=== PATIENT | male | born 1985 | race Caucasian/White ===

== ENCOUNTER 2018-03-07 05:13 | Emergency (ER) | payer OTHER ==
[2018-03-07 05:19] VITALS: RESP 18; TEMP 98.3
[2018-03-07] MEDS ORDERED: ASPIRIN 81 MG PO STA (05:21)
[2018-03-07 05:49] LABS: Basophils % (A) 0 %; Eosinophils # (A) 0.3 k/uL (0-0.7); Eosinophils % (A) 3 %; HCT 46.2 % (39.0-53.0); HGB 15.2 gm/dL (13.0-17.5); Lymphocytes # (A) 2.4 k/uL (1.0-4.8); Lymphocytes % (A) 28 %; MCH 29.3 pg (25.0-35.0); MCHC 32.9 g/dL (31.0-37.0); MCV 89.1 fL (80.0-100.0); Mean Platelet Volume 6.6; Monocytes # (A) 0.4 k/uL (0-1.0); Monocytes % (A) 5 %; Neutrophils # (A) 5.4 k/uL (1.3-7.7); Neutrophils % (A) 62 %; Platelet Count 263 k/uL (150-450); RBC 5.19 m/uL (4.30-5.90); WBC 8.6 k/uL (3.8-10.6)
--- NOTE | 2018-03-07 05:49 | XR ---
EXAMINATION TYPE: XR chest 2V DATE OF EXAM: 03/07/2018 COMPARISON: NONE HISTORY: Chest pain TECHNIQUE: Frontal and lateral views of the chest are obtained. FINDINGS: Heart and mediastinum are normal. Lungs are clear. Diaphragm is normal. Bony thorax is int act. There are chest leads. IMPRESSION: Normal chest
[2018-03-07 05:59] LABS: ALT 18 U/L (21-72); AST 25 U/L (17-59); Albumin 4.4 g/dL (3.5-5.0); Alkaline Phosphatase 87 U/L (38-126); Anion Gap 7 mmol/L; Blood Urea Nitrogen 8 mg/dL (9-20); Calcium 9.8 mg/dL (8.4-10.2); Carbon Dioxide 29 mmol/L (22-30); Chloride 103 mmol/L (98-107); Glucose 102 mg/dL (74-99); Lipase 71 U/L (23-300); Potassium 3.9 mmol/L (3.5-5.1); Sodium 139 mmol/L (137-145); Total Bilirubin 0.7 mg/dL (0.2-1.3); Total Protein 7.5 g/dL (6.3-8.2)
[2018-03-07 06:11] LABS: D-Dimer <0.17 mg/L FEU (<0.60); Partial Thromboplastin Time 26.9 sec (22.0-30.0); Prothrombin Time 9.9 sec (9.0-12.0)
--- NOTE | 2018-03-07 06:20 | ED ---
General Adult HPI - General Source: patient Mode of arrival: ambulatory Limitations: no limitations <Melany Brian - Last Filed: 03/07/18 07:16> <Chidi Mensah - Last Filed: 03/07/18 09:30> - General Chief complaint: Chest Pain Stated complaint: Chest Pain Time Seen by Provider: 03/07/18 05:21 - History of Present Illness Initial comments: Dejuan is a 32-year-old male who presents the emergency department today for evaluation of chest pain. She reports he was in his usual state of health throughout the day yesterday. He reports that he woke this morning with a pressure-like sensation in his left chest. This was not associated with any diaphoresis, lightheadedness, or evidence of breath or palpitations. Patient reports that the symptoms have improved significantly since arrival in the emergency department. He is a known cardiac or pulmonary history. He does report that he has had a runny stuffy nose and ear pressure for the past couple of days. He denies any fevers, chills, nausea, vomiting or evidence of breath or wheezing. (Melany Brian) - Related Data Home Medications Medication Instructions Recorded Confirmed Phenylephrine/Dm/Acetaminop/GG 2 tab PO Q4HR PRN 03/07/18 03/07/18 [Tylenol Cold-Flu Severe Caplet] Allergies Allergy/AdvReac Type Severity Reaction Status Date / Time No Known Allergies Allergy Verified 03/07/18 07:11 Review of Systems ROS Other: All systems not noted in ROS Statement are negative. <Melany Brian - Last Filed: 03/07/18 07:16> ROS Other: All systems not noted in ROS Statement are negative. <Chidi Mensah - Last Filed: 03/07/18 09:30> ROS Statement: Those systems with pertinent positive or pertinent negative responses have been documented in the HPI. Past Medical History Past Medical History: No Reported History History of Any Multi-Drug Resistant Organisms: None Reported Past Surgical History: Ear Surgery Past Psychological History: No Psychological Hx Reported Smoking Status: Current every day smoker Past Alcohol Use History: Occasional Past Drug Use History: Marijuana <Melany Brian - Last Filed: 03/07/18 07:16> General Exam Limitations: no limitations <Melany Brian - Last Filed: 03/07/18 07:16> <Chidi Mensah - Last Filed: 03/07/18 09:30> - General Exam Comments Initial Comments: GENERAL: Patient is well-developed and well-nourished. Patient is nontoxic and well- hydrated and is in no distress. HENT: Normocephalic, Atraumatic. Neck is soft and supple. No significant lymphadenopathy is noted. Oropharynx is clear. Moist mucous membranes. Neck has full range of motion without eliciting any pain. EYES: The sclera were anicteric and conjunctiva were pink and moist. Extraocular movements were intact and pupils were equal round and reactive to light. Eyelids were unremarkable. PULMONARY: Unlabored respirations. Good breath sounds bilaterally. No audible rales rhonchi or wheezing was noted. CARDIOVASCULAR: There is a regular rate and rhythm without any murmurs gallops or rubs. ABDOMEN: Soft and nontender with normal bowel sounds. SKIN: Skin is clear with no lesions or rashes and otherwise unremarkable. NEUROLOGIC: Patient is alert and oriented x3. Cranial nerves II through XII are grossly intact. Motor and sensory are also intact. Normal speech, volume and content. Symmetrical smile. MUSCULOSKELETAL: Normal extremities with adequate strength and full range of motion. No lower extremity swelling or edema. No calf tenderness. LYMPHATICS: No significant lymphadenopathy is noted PSYCHIATRIC: Normal psychiatric evaluation. Limitations: no limitations (Melany Brian) Vital Signs 03/07/18 03/07/18 05:17 06:27 Temperature 98.3 F Pulse Rate 82 68 Respiratory 18 18 Rate Blood Pressure 139/95 116/73 O2 Sat by Pulse 98 98 Oximetry EKG Findings - EKG Comments: EKG Findings:: EKG obtained at 5:25 AM, rate is 82, rhythm is sinus, short OR concerning for WPW, QRS 120, QTC 467, no acute ST elevations or depressions no evidence of acute ischemia or infarction. EKG obtained at 6:33 AM, again sinus rhythm rate is 71, again a short OR concerning for WPW. OR 108, QRS 1:30, QTC 462. No acute ST elevations or depressions no evidence of acute ischemia or infarction. <Melany Brian - Last Filed: 03/07/18 07:16> Medical Decision Making - Lab Data Result diagrams: 03/07/18 05:24 03/07/18 05:24 <Melany Brian - Last Filed: 03/07/18 07:16> - Lab Data Result diagrams: 03/07/18 05:24 03/07/18 05:24 - Radiology Data Radiology results: image reviewed (Chest x-ray shows no acute process) <Chidi Mensah - Last Filed: 03/07/18 09:30> - Medical Decision Making Upon my initial evaluation the patient sitting comfortably in bed tech sting on his phone, when I introduced myself and offered to shake the patient's hand, the patient did not stop exiting and instead reached out his left hand while still paying attention to his cell phone. Initial EKG sinus rhythm with WPW, patient has no history of such Cardiac workup was ordered Labs unremarkable, troponin and d-dimer negative Repeat EKG again confirms WPW Cardiology was consulted to discuss these EKG findings, launch leader at bedside to evaluate the patient, recommends repeat troponin and plan for discharge home Patient care is signed out to Dr. Mensah follow-up on the 3 hour troponin and dispo appropriately (Melany Brian) Patient was previously seen by Dr. La who did recommend repeat troponin and discharge. Patient reevaluated by myself, Dr. Mensah. Patient resting comfortably in bed with no complaints requesting discharge. Patient is updated on results and need for follow-up as directed by Dr. Brar who did take the patient's phone number. (Chidi Mensah) - Lab Data Lab Results 03/07/18 03/07/18 03/07/18 Range/Units 05:24 05:24 05:24 WBC 8.6 (3.8-10.6) k/uL RBC 5.19 (4.30-5.90) m/uL Hgb 15.2 (13.0-17.5) gm/dL Hct 46.2 (39.0-53.0) % MCV 89.1 (80.0-100.0) fL MCH 29.3 (25.0-35.0) pg MCHC 32.9 (31.0-37.0) g/dL RDW 13.0 (11.5-15.5) % Plt Count 263 (150-450) k/uL Neutrophils % 62 % Lymphocytes % 28 % Monocytes % 5 % Eosinophils % 3 % Basophils % 0 % Neutrophils # 5.4 (1.3-7.7) k/uL Lymphocytes # 2.4 (1.0-4.8) k/uL Monocytes # 0.4 (0-1.0) k/uL Eosinophils # 0.3 (0-0.7) k/uL Basophils # 0.0 (0-0.2) k/uL PT 9.9 (9.0-12.0) sec INR 1.0 (<1.2) APTT 26.9 (22.0-30.0) sec D-Dimer <0.17 (<0.60) mg/L FEU Sodium 139 (137-145) mmol/L Potassium 3.9 (3.5-5.1) mmol/L Chloride 103 (98-107) mmol/L Carbon Dioxide 29 (22-30) mmol/L Anion Gap 7 mmol/L BUN 8 L (9-20) mg/dL Creatinine 0.77 (0.66-1.25) mg/dL Est GFR (CKD-EPI)AfAm >90 (>60 ml/min/1.73 sqM) Est GFR (CKD-EPI)NonAf >90 (>60 ml/min/1.73 sqM) Glucose 102 H (74-99) mg/dL Calcium 9.8 (8.4-10.2) mg/dL Magnesium 2.0 (1.6-2.3) mg/dL Total Bilirubin 0.7 (0.2-1.3) mg/dL AST 25 (17-59) U/L ALT 18 L (21-72) U/L Alkaline Phosphatase 87 (38-126) U/L Troponin I (0.000-0.034) ng/mL Total Protein 7.5 (6.3-8.2) g/dL Albumin 4.4 (3.5-5.0) g/dL Lipase 71 (23-300) U/L 03/07/18 03/07/18 Range/Units 05:24 08:10 WBC (3.8-10.6) k/uL RBC (4.30-5.90) m/uL Hgb (13.0-17.5) gm/dL Hct (39.0-53.0) % MCV (80.0-100.0) fL MCH (25.0-35.0) pg MCHC (31.0-37.0) g/dL RDW (11.5-15.5) % Plt Count (150-450) k/uL Neutrophils % % Lymphocytes % % Monocytes % % Eosinophils % % Basophils % % Neutrophils # (1.3-7.7) k/uL Lymphocytes # (1.0-4.8) k/uL Monocytes # (0-1.0) k/uL Eosinophils # (0-0.7) k/uL Basophils # (0-0.2) k/uL PT (9.0-12.0) sec INR (<1.2) APTT (22.0-30.0) sec D-Dimer (<0.60) mg/L FEU Sodium (137-145) mmol/L Potassium (3.5-5.1) mmol/L Chloride (98-107) mmol/L Carbon Dioxide (22-30) mmol/L Anion Gap mmol/L BUN (9-20) mg/dL Creatinine (0.66-1.25) mg/dL Est GFR (CKD-EPI)AfAm (>60 ml/min/1.73 sqM) Est GFR (CKD-EPI)NonAf (>60 ml/min/1.73 sqM) Glucose (74-99) mg/dL Calcium (8.4-10.2) mg/dL Magnesium (1.6-2.3) mg/dL Total Bilirubin (0.2-1.3) mg/dL AST (17-59) U/L ALT (21-72) U/L Alkaline Phosphatase (38-126) U/L Troponin I <0.012 <0.012 (0.000-0.034) ng/mL Total Protein (6.3-8.2) g/dL Albumin (3.5-5.0) g/dL Lipase (23-300) U/L Disposition <Melany Brian - Last Filed: 03/07/18 07:16> Is patient prescribed a controlled substance at d/c from ED?: No Time of Disposition: 09:30 <Chidi Mensah - Last Filed: 03/07/18 09:30> Clinical Impression: WPW (Pegrc-Lkochjcly-Cybnx syndrome), Atypical chest pain Disposition: HOME SELF-CARE Condition: Stable Instructions: Chest Pain (ED), Hbvql-Bhoeoipmh-Lhupf Syndrome (ED) Additional Instructions: Please follow-up with Dr. Blake as directed. Please follow-up with primary care physician in the next couple days for recheck. Return for increased pain, difficulty breathing, increased heart rate, worsening or changing symptoms or other concerns. Referrals: Rain Dsouza MD [Primary Care Provider] - 1-2 days Stan Brar MD [STAFF PHYSICIAN] - 1-2 days
[2018-03-07 06:28] VITALS: PULSE 68
[2018-03-07 07:07] VITALS: BP 116/73
--- NOTE | 2018-03-07 12:09 | P.CRDCN ---
History of Present Illness History of present illness: This is Dr. Brar dictating a consult on this patient The patient was interviewed and examined by me IMPRESSION / ASSESSMENT: Abnormal ECG with delta waves consistent with a left posterior accessory pathway , symptomatic Atypical chest discomfort with normal cardiac enzymes Recurrent palpitations PLAN: Patient may go home if serial cardiac enzymes and ECGs show no changes. Follow- up with Dr. Ford as an outpatient for the management of the WPW syndrome HPI Patient presented with localized chest discomfort of the left pectoral area. He woke up with this pain and came to the ER. Spontaneous resolution of the pain. Twelve-lead ECG showed sinus rhythm with a short NH interval and delta waves with upright morphology in leads V1 through V6 upright in one in aVL and mostly negative in the inferior leads with initial positivity He was complaining of sore throat for the last few days no fever ROS: He complains of recurrent palpitations that can last for 20-25 minutes. He has had at least 3 episodes this year. Describes are regular and rapid tachycardia, not and irregular one No fever chills or rigors, no cough, phlegm or expectoration, no nausea, vomiting or diarrhea, no hematuria, dysuria, no musculoskeletal complaints, no strokes or seizures, no skin lesions. EXAMINATION Afebrile 98.3F blood pressure 139/95 and 116/73 mmHg pulse rate in the 60s normal respirations Breath sounds are clear no rhonchi no crackles no adventitious sounds Normal heart sounds normal S1 normal S2 no murmurs or gallops no rub Abdomen is soft nontender Extremities warm no edema REVIEW OF LABS, ECG ECG shows left-sided accessory pathway likely inferior/posterior location Normal CBC, normal electrolytes, Serial chronic enzymes are normal normal lipase normal kidney function Number chest x-ray Past Medical History Past Medical History: No Reported History History of Any Multi-Drug Resistant Organisms: None Reported Past Surgical History: Ear Surgery Past Psychological History: No Psychological Hx Reported Smoking Status: Current every day smoker Past Alcohol Use History: Occasional Past Drug Use History: Marijuana Medications and Allergies Home Medications Medication Instructions Recorded Confirmed Type Phenylephrine/Dm/Acetaminop/GG 2 tab PO Q4HR PRN 03/07/18 03/07/18 History [Tylenol Cold-Flu Severe Caplet] Allergies Allergy/AdvReac Type Severity Reaction Status Date / Time No Known Allergies Allergy Verified 03/07/18 07:11 Physical Exam Vitals: Vital Signs Temp Pulse Resp BP Pulse Ox 03/07/18 06:27 68 18 116/73 98 03/07/18 05:17 98.3 F 82 18 139/95 98 Intake and Output 03/06/18 03/07/18 03/07/18 22:59 06:59 14:59 Other: Weight 56.699 kg Results 03/07/18 05:24 03/07/18 05:24 Cardiac Enzymes 03/07/18 03/07/18 03/07/18 Range/Units 05:24 05:24 08:10 AST 25 (17-59) U/L Troponin I <0.012 <0.012 (0.000-0.034) ng/mL Coagulation 03/07/18 Range/Units 05:24 PT 9.9 (9.0-12.0) sec APTT 26.9 (22.0-30.0) sec CBC 03/07/18 Range/Units 05:24 WBC 8.6 (3.8-10.6) k/uL RBC 5.19 (4.30-5.90) m/uL Hgb 15.2 (13.0-17.5) gm/dL Hct 46.2 (39.0-53.0) % Plt Count 263 (150-450) k/uL Comprehensive Metabolic Panel 03/07/18 Range/Units 05:24 Sodium 139 (137-145) mmol/L Potassium 3.9 (3.5-5.1) mmol/L Chloride 103 (98-107) mmol/L Carbon Dioxide 29 (22-30) mmol/L BUN 8 L (9-20) mg/dL Creatinine 0.77 (0.66-1.25) mg/dL Glucose 102 H (74-99) mg/dL Calcium 9.8 (8.4-10.2) mg/dL AST 25 (17-59) U/L ALT 18 L (21-72) U/L Alkaline Phosphatase 87 (38-126) U/L Total Protein 7.5 (6.3-8.2) g/dL Albumin 4.4 (3.5-5.0) g/dL Intake and Output 03/06/18 03/07/18 03/07/18 22:59 06:59 14:59 Other: Weight 56.699 kg 03/07/18 05:24 03/07/18 05:24
== END 2018-03-07 09:38 | disposition home or self-care (01) ==
LOC: EC 05:13
DX: I45.6 Pre-excitation syndrome (principal); F17.200 Nicotine dependence, unspecified, uncomplicated
CPT/HCPCS: 36415; 71046; 80053; 83690; 83735; 84484; 85025; 85379; 85610; 85730; 93005; 99285

== ENCOUNTER → 2018-06-16 | Outpatient (CLI) | payer OTHER ==
[2018-06-16 15:16] LABS: HCT 42.1 % (39.0-53.0); HGB 14.1 gm/dL (13.0-17.5); MCH 29.8 pg (25.0-35.0); MCHC 33.4 g/dL (31.0-37.0); MCV 89.2 fL (80.0-100.0); Mean Platelet Volume 6.6; Platelet Count 222 k/uL (150-450); RBC 4.72 m/uL (4.30-5.90); RDW 13.4 % (11.5-15.5); WBC 7.2 k/uL (3.8-10.6)
[2018-06-16 15:26] LABS: Anion Gap 7 mmol/L; Blood Urea Nitrogen 10 mg/dL (9-20); Carbon Dioxide 29 mmol/L (22-30); Chloride 104 mmol/L (98-107); Glucose 100 mg/dL (74-99); Potassium 4.1 mmol/L (3.5-5.1); Sodium 140 mmol/L (137-145)
== END | disposition home or self-care (01) ==
LOC: LABPAT 14:40
PROVIDERS: ATTEND Internal Medicine Clinical Cardiac Electrophysiology
DX: Z01.812 Encounter for preprocedural laboratory examination (principal); R07.2 Precordial pain; R94.31 Abnormal electrocardiogram [ECG] [EKG]; I45.6 Pre-excitation syndrome
CPT/HCPCS: 36415; 80051; 82565; 82947; 84520; 85027

== ENCOUNTER 2018-06-26 06:48 | Day surgery (SDC) | payer OTHER ==
[~2018-06-26 06:48] MED LIST: LIDOCAINE 1% 20 ML VIAL (10MG/ML) FOR IV START INTRADERMA PRN
[2018-06-26] MEDS: SODIUM CHLORIDE 0.9% 1,000 ML IV SCH (07:32)
[2018-06-26] MEDS ORDERED: NEOSTIGMINE 1 MG/ML 10 ML VIAL ONE (08:09)
[2018-06-26] MEDS ORDERED: ISOPROTERENOL 250 MCG/1.25 ML SYR IV ONE (08:09)
[2018-06-26] MEDS ORDERED: GLYCOPYRROLATE 0.2 MG/ML 2 ML VIAL ONE (08:09)
[2018-06-26] MEDS ORDERED: ROCURONIUM BROMIDE 10 MG/ML 10 ML VIAL IV ONE (08:09)
[2018-06-26] MEDS ORDERED: fentaNYL (PF) 50 MCG/ML 2 ML AMP ONE (08:09)
[2018-06-26] MEDS ORDERED: MIDAZOLAM 2 MG/2 ML VIAL ONE (08:09)
[2018-06-26] MEDS ORDERED: PROTAMINE SULFATE 10 MG/ML 5 ML VIAL IV ONE (08:09)
[2018-06-26] MEDS ORDERED: SUCCINYLCHOLINE CHLORIDE 100 MG/5 ML SYR IV ONE (08:09)
[2018-06-26] MEDS ORDERED: PROPOFOL 10 MG/ML 20 ML VIAL IV ONE (08:09)
[2018-06-26] MEDS ORDERED: HEPARIN SODIUM,PORCINE 10,000 UNIT/ML 1 ML VIAL ONE (08:09)
[2018-06-26] MEDS ORDERED: LIDOCAINE 1% INJ 10MG/ML (20 ML MDV) ONE (08:35)
[2018-06-26] MEDS ORDERED: LIDOCAINE 1% INJ 10MG/ML (20 ML MDV) SQ ONE (08:50)
[2018-06-26] MEDS ORDERED: ceFAZolin IN SWFI 2 GM/20 ML SYRINGE IVP STA (09:10)
[2018-06-26] MEDS ORDERED: HEPARIN SOD,PORK IN 0.45% NACL 25,000 UNIT in 0.45% NACL 1 250ML.BAG IV ONE (10:40)
[2018-06-26] MEDS ORDERED: HEPARIN SODIUM (1,000 UNIT/ML) 1,000 UNIT in SODIUM CHLORIDE 0.9% 1,000 ML IRRIGATION ONE (11:21)
[2018-06-26] MEDS ORDERED: LACTATED RINGERS 1,000 ML IV ONE (14:43)
--- NOTE | 2018-06-26 15:04 | P.PCN ---
Preoperative Diagnosis: Patient underwent mapping and radiofrequency ablation of the left posterior accessory pathway, bidirectional. This was a deep pathway likely brought Differential pacing techniques were used Mapping was performed with atrial pacing from the high right atrium with 3-D mapping as well as conventional mapping Mapping was performed with distal CS pacing with 3-D mapping as well as conventional mapping Double transseptal access was obtained to place a diagnostic catheter in the left atrium and left ventricle during differential pacing as well as the RF ablation catheter Mapping was performed with lateral left atrial pacing with 3-D and conventional mapping Mapping was performed with LV base pacing ALL mapping techniques localized the pathway to the left posterior mitral annulus very close to each other Bipolar signals at least 16 ms earlier then the onset of the deltopectoral A. fib with corresponding sharp deep unipolar signals were noted Continuous electrograms with early ventricular activation as compared to the onset of the delta waves were noted with excellent unipolar signals correspondingly Signals consistent with pathway Potential was noted both of the atrial and ventricular ends RF ablation with a contact force between 5-40 g Power of 30-35 W Transseptal approach was used to gain access into the left atrium for ablation at both atrial as well as ventricular ends Transseptal access was also used to gain access across the mitral annulus and go under the valve and ablated the ventricular end Once the atrial and was ablated there is a clear change in the morphology of lead V1 from a broad wide fractionated upright signal to a shop narrow signal but subtle evidence of a delta wave was still noticeable in the rest of the precordial leads and in lead 1 This was a deep pathway and likely brought and despite accurate maps that coincided with each other using different pacing techniques, partial success was obtained in ablating this pathway There is a clear change in the QRS morphology in sinus rhythm as well as with atrial pacing post ablation This is a long procedure that lasted over 5-1/2 hours
[2018-06-26] MEDS ORDERED: PROMETHAZINE INJ 25 MG/ML 1 ML VIAL IVPB ONE (15:30)
[2018-06-26] MEDS ORDERED: HYDROcodone/APAP 5-325MG 1 EACH TAB PO PRN (15:49)
--- NOTE | 2018-06-26 16:23 | PCN ---
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 Patient was brought to the EP lab in a fasting state. Written informed consent was obtained prior to procedure. The right and left groins were prepped and draped as per protocol. Two venous sheaths placed in the right femoral vein, 2 venous sheaths in the left femoral vein. Via these, diagnostic catheters placed in the high right atrium, HIS bundle area, right ventricle and coronary sinus. Sinus cycle length 802 milliseconds, WV interval 88 milliseconds, QRS 131 milliseconds, QT 375 milliseconds, AH interval 15 milliseconds, HV interval 18 milliseconds. In conscious sedation, the patient started moving around a lot and getting off the table and therefore the rest of the procedure was performed under general anesthesia. The 12-lead ECG was consistent with an accessory pathway along the left posterior aspect (posterior mitral anulus). The initial vector of the Delta waves was positive in leads 1 and aVL, somewhat to negative in the inferior leads and upright in V1. Sinus node recovery times were at 500 and 400 milliseconds were 667 and 652 milliseconds. AV node Wenckebach block 220 milliseconds with simultaneous block in excessive pathway and the AV node. VA Wenckebach block 370 milliseconds. Earliest retrograde atrial activity in CS5, 6 which was in the posterior aspect of the mitral anulus. Para Hisian pacing was performed, but extra jazmyn response was obtained. Atrial extra stimulation was performed on and off Isuprel, and ventricular extra stimulation was also performed. No orthodromic reentry. No antidromic reentry. However, the conducting properties of the pathway were rapid with AV block at 220 milliseconds and accessory pathway block at 220 milliseconds even without Isuprel. With Isuprel, conduction remained intact at less than 200 milliseconds pacing cycle length in the atrium. Therefore, left and right transseptal catheterization was performed. Intracardiac echo was performed. Interatrial septum was identified. Mitral anulus was identified. RA pressure 10 x 5 x 7 mmHg and LA pressure 17 x 2 x 9 mmHg. Mapping and ablation catheter (YOLANDA birch) was placed and the pathway was mapped. The ventricular end was mapped during high right atrial pacing and then subsequently the ventricular end was mapped during distal CS pacing beyond the pathway. Both of these sides coincided fairly well with each other in terms of the location of the pathway by conventional techniques, excellent electrograms with early bipolar signals preceding the onset of the delta wave with corresponding deep negative unipolar signals are noted. RF ablation was performed with contact force of around 7-12 g, but no response was noted with short lesions of 10-12 seconds with a power of 30 velasquez. Therefore double transseptal catheterization was performed. The diagnostic catheter was placed in the left atrium. Then secured in the left ventricle. Pacing in the left atrium, the ventricular end of the pathway was mapped. Once again, this corresponded very well with his previous maps. V pacing was performed from the left ventricular base and the atrial end of the pathway was mapped and this also corresponded very well with the ventricular end that had to be mapped with 3 different techniques. The left atrium was paced in the lateral left atrium. RF ablation was applied along the atrial insertion. There was a change at this time contact force between 10 to 14 was used and then was obtained power of up to 35 velasquez. This resulted in a change in the QRS, especially in lead V1 and narrowing of the QRS in general with less prominent delta waves, but lead V1 had a clear change in its configuration and became sharp without any evident delta waves. There was a subtle evidence for delta waves in the other leads. WV interval increased slightly. We spent almost 5-1/2 hours mapping this pathway in detail with differential pacing from the right atrium, coronary sinus, distal coronary sinus, left atrium and from the left ventricle. Early bipolar signals of at least 16 milliseconds from the onset of the delta waves were noted. There were corresponding sharp unipolar signals along with these bipolar signals. Continuous electrograms were also noted with early ventricular signals. On several occasions, pathway potentials were noted especially on the ventricular aspect of the insertion (putative can potential). These areas were all targeted with ablation with good contact force and good power, but subtle evidence of delta waves were still noted in the lateral in lead 1, aVL as well as in the lateral precordial leads. In the final this appeared to be a deep and fairly broad accessory and reasonably broad accessory pathway with near complete elimination with RF ablation. Patient tolerated the procedure well without any acute complications. Bleeding was noted from the right groin where a double puncture was performed in the right groin for double transseptal access, but this settled down after protamine was given to reverse the heparin and removal of the sheath. Femstop was used. PLAN: Bedrest for 6-8 hours and I will also treat her with aspirin 81 mg p.o. daily for 1 month and in addition we will treat her with flecainide 50 mg twice daily and Verapamil 40 mg twice daily for the next 6 weeks. MMODL / IJN: [id number] /
[2018-06-26] MEDS: LACTATED RINGERS 1,000 ML IV SCH (16:24)
[2018-06-26] MEDS ORDERED: ACETAMINOPHEN IV (For NPO) 1,000 MG in EMPTY BAG 1 BAG IVPB ONE (17:00)
[2018-06-26 17:36] VITALS: BMI 18.4
[2018-06-26] MEDS ORDERED: ONDANSETRON 4 MG/2 ML VIAL IVP PRN (19:02)
[2018-06-26] MEDS: ASPIRIN 81 MG PO SCH (19:02)
[2018-06-26] MEDS: ACETAMINOPHEN TAB 325 MG TAB PO PRN (20:57)
[2018-06-26] MEDS: FLECAINIDE 50 MG TAB PO SCH (20:57)
[2018-06-26] MEDS: VERAPAMIL 40 MG TAB PO SCH (20:58)
[2018-06-27] MEDS: ACETAMINOPHEN TAB 325 MG TAB PO PRN (03:44)
[2018-06-27 05:09] LABS: HCT 31.5 % (39.0-53.0); MCH 30.8 pg (25.0-35.0); MCHC 34.6 g/dL (31.0-37.0); MCV 88.8 fL (80.0-100.0); Mean Platelet Volume 6.9; Platelet Count 172 k/uL (150-450); RBC 3.55 m/uL (4.30-5.90); RDW 13.4 % (11.5-15.5); WBC 12.6 k/uL (3.8-10.6)
[2018-06-27 05:43] LABS: HGB 10.9 gm/dL (13.0-17.5)
[2018-06-27 07:23] VITALS: BP 151/78; PULSE 73; RESP 18; TEMP 97.5
[2018-06-27] MEDS: SODIUM CHLORIDE 0.9% 1,000 ML IV SCH (08:39)
[2018-06-27] MEDS: LACTATED RINGERS 1,000 ML IV SCH (08:40)
[2018-06-27] MEDS: VERAPAMIL 40 MG TAB PO SCH (08:45)
[2018-06-27] MEDS: ASPIRIN 81 MG PO SCH (08:47)
[2018-06-27] MEDS: FLECAINIDE 50 MG TAB PO SCH (08:47)
--- NOTE | 2018-06-27 10:30 | P.DS ---
Providers Attending physician: Stan Brar Primary care physician: José Luis Krzysztof [facility] Course: Patient is doing well. He is ambulating around in the hallways. No dizziness lightheadedness palpitations no chest pain. Right groin soreness but there is no hematoma no swelling no bruising Temperature 97.5F pulse rate in the 70s and 80s and 90s sinus rhythm Blood pressure 130/72 mmHg breathing is normal Breath sounds are clear Heart sounds are normal Abdomen soft Next images are warm No hematoma His groin sutures removed Twelve-lead ECG was reviewed and shows a non-sinus supraventricular rhythm with a QRS morphology that is suggestive no delta waves but it is different from his baseline 12-lead ECG. The most different is the morphology of the QRS in lead V1 Impression left posterior accessory pathway which was deep and broad, especially its ventricular insertion. Definitely a partially successful ablation was performed with the change in the QRS morphology once the atrial insertion was mapped and ablated during LV base pacing Plan Aspirin for one month Flecainide 50 mrem twice daily for 6 weeks along with verapamil for 6 weeks Follow-up with Dr. Hand in 1 week for a groin check I would like to see him in about 3 months and review his twelve-lead ECG at that point I may consider a repeat diagnostic EP study to confirm any residual accessory pathway conduction and assess its conduction properties His hemoglobin is lower than at baseline and is around 10 g/dL and encouraged him to eat a lot of greens and nondistended foods and this should normalize in the next 3 months. Patient Condition at Discharge: Stable Plan - Discharge Summary Discharge Rx Participant: Yes New Discharge Prescriptions: New Flecainide [Tambocor] 50 mg PO Q12HR #180 tablet Verapamil [Isoptin] 40 mg PO BID #180 tablet Aspirin EC [Ecotrin Low Dose] 81 mg PO DAILY #40 tablet. No Action diphenhydrAMINE [Benadryl] 25 mg PO DAILY PRN PRN Reason: sinus congestion Discharge Medication List diphenhydrAMINE [Benadryl] 25 mg PO DAILY PRN 06/22/18 [History] Aspirin EC [Ecotrin Low Dose] 81 mg PO DAILY #40 tablet. 06/26/18 [Rx] Flecainide [Tambocor] 50 mg PO Q12HR #180 tablet 06/26/18 [Rx] Verapamil [Isoptin] 40 mg PO BID #180 tablet 06/26/18 [Rx] Follow up Appointment(s)/Referral(s): Kuldip Joseph MD [STAFF PHYSICIAN] - 1 Week Activity/Diet/Wound Care/Special Instructions: Post EP study - Ablation instructions 1. Keep access sites dry for 2 days. 2. No heavy lifting or straining for 2 days. 3. Avoid bending the hips repeatedly for 2 days. 4. You may go up and down stairs slowly Call if the following is noted 1. Bleeding, increasing swelling or pain at the access sites. 2. Increasing chest discomfort, especially upon taking a deep breath. 3. Increasing shortness of breath, at rest or with exertion. 4. Undue cough / phlegm 5. Difficulty or pain while swallowing. 6. Pain or change in color in the extremities. 7. Fever, chills, rigors. 8. Increasing headache or neurologic symptoms. 9. Dizziness, fainting, palpitations Aspirin 81 mg enteric-coated for one month, then stop Flecainide 50 g twice daily as well as verapamil 40 g twice daily Discharge Disposition: HOME SELF-CARE
== END 2018-06-27 11:50 | disposition home or self-care (01) ==
LOC: CATHEP 06:48 → 1SOBS 14:30 → CATHEP 06-27 11:50
PROVIDERS: ATTEND Internal Medicine Clinical Cardiac Electrophysiology
DX: I45.6 Pre-excitation syndrome (principal); I47.1 Supraventricular tachycardia; F17.200 Nicotine dependence, unspecified, uncomplicated
CPT/HCPCS: 93462; 93623; 93662; 93613; 93653; 85347; 85027; C1769 ×4; C1894; C1730; C1759; C1893; C1732; J2250; J2720; J1644 ×3; J2550; J2710; J2001; J3010; J0131; J0330; J2704; J0690

== ENCOUNTER 2018-10-05 17:23 | Emergency (ER) | payer OTHER ==
[2018-10-05 17:28] VITALS: BP 136/89; PULSE 102; RESP 20; TEMP 98.2
--- NOTE | 2018-10-05 18:02 | XR ---
EXAMINATION TYPE: XR hand complete LT DATE OF EXAM: 10/05/2018 COMPARISON: NONE HISTORY: Pain TECHNIQUE: 3 views FINDINGS: There is transverse fracture through the neck of the fifth metacarpal head. There is mild p osterior angulation at the fracture site. There is no dislocation. Joint spaces are normal. IMPRESSION: Acute boxer's fracture distal fifth metacarpal.
--- NOTE | 2018-10-05 18:03 | XR ---
EXAMINATION TYPE: XR wrist complete LT DATE OF EXAM: 10/05/2018 COMPARISON: NONE HISTORY: Hand pain TECHNIQUE: 4 views FINDINGS: Carpal bones are intact. I see no fracture nor dislocation. Joint spaces are normal. IMPRESSION: Negative left wrist exam.
--- NOTE | 2018-10-05 18:52 | ED ---
General Adult HPI - General Chief complaint: Extremity Injury, Upper Stated complaint: Finger injury Time Seen by Provider: 10/05/18 17:35 Source: patient, RN notes reviewed, old records reviewed Mode of arrival: ambulatory Limitations: no limitations - History of Present Illness Initial comments: 32-year-old male patient comes to the left hand injury. Patient reports that he posterior wall in anger earlier today. Patient denies pain on his fifth metacarpal. Patient denies any other injury. Patient denies any pain to other areas of hand, pain in the wrist. Patient denies any other complaints. Systemic: Pt denies fatigue, myalgia, fever/chills, rash. Pt denies weakness, night sweats, weight loss. Neuro: Pt denies headache, visual disturbances, syncope or pre-syncope. HEENT: Pt denies ocular discharge or irritation, otalgia, rhinorrhea, pharyngitis or notable lymphadenopathy. Cardiopulmonary: Pt denies chest pain, SOB, heart palpitations, dyspnea on exertion. Abdominal/GI: Pt denies abdominal pain, n/v/d. : Pt denies dysuria, burning w/ urination, frequency/urgency. Denies new onset urinary or bowel incontinence. MSK: Pt denies myalgia, loss of strength or function in extremities. Neuro: Pt denies new onset weakness, paresthesias. - Related Data Home Medications Medication Instructions Recorded Confirmed diphenhydrAMINE [Benadryl] 25 mg PO DAILY PRN 06/22/18 06/26/18 Previous Rx's Medication Instructions Recorded Aspirin EC [Ecotrin Low Dose] 81 mg PO DAILY #40 tablet. 06/26/18 Flecainide [Tambocor] 50 mg PO Q12HR #180 tablet 06/26/18 Verapamil [Isoptin] 40 mg PO BID #180 tablet 06/26/18 Allergies Allergy/AdvReac Type Severity Reaction Status Date / Time No Known Allergies Allergy Verified 10/05/18 17:28 Review of Systems ROS Statement: Those systems with pertinent positive or pertinent negative responses have been documented in the HPI. ROS Other: All systems not noted in ROS Statement are negative. 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 HEENT: NC/AT, trachea midline, neck supple, no lymphadenopathy. Posterior pharynx non erythematous, without exudates. External ears appear normal, without discharge. Mucous membranes moist. Eyes PERRLA, EOM intact. There is no scleral icterus. No pallor noted. Cardiopulmonary: RRR, no murmurs, rubs or gallops, no JVD noted. Lungs CTAB in anterior and posterior pineda. No peripheral edema. Abdominal exam: Abdomen soft and non-distended. Abdomen non-tender to palpation in all 4 quadrants. Bowel sounds active in LLQ. No hepatosplenomegaly. No ecchymosis Neuro: CN II-XII grossly intact. No nuchal rigidity. MSK: Edema and pain noted fifth metacarpal of left hand. Radial pulse +2. Capillary refill less than 2 seconds. Sensation intact. Patient placed in ulnar gutter splint. Patient neuro vascular intact after splint placement. No posterior calf tenderness bilaterally, homans sign negative bilaterally. Posterior tibialis and radial pulse +2 bilaterally. Sensation intact in upper and lower extremities. Full active ROM in upper and lower extremities, 5/5 stregnth. Limitations: no limitations Course Vital Signs 10/05/18 17:25 Temperature 98.2 F Pulse Rate 102 H Respiratory 20 Rate Blood Pressure 136/89 O2 Sat by Pulse 97 Oximetry Medical Decision Making - Medical Decision Making 32-year-old male patient comes to the left hand injury. Patient reports that he posterior wall in anger earlier today. Patient denies pain on his fifth metacarpal. Patient denies any other injury. Patient denies any pain to other areas of hand, pain in the wrist. Patient denies any other complaints. Patient vital signs stable, afebrile. Physical exam displayed: Edema and pain noted fifth metacarpal of left hand. Radial pulse +2. Capillary refill less than 2 seconds. Sensation intact. Patient placed in ulnar gutter splint. Patient neuro vascular intact after splint placement. Plain film of left wrist denies acute pathology. An film of right hand display acute fracture to distal fifth metacarpal mild posterior angulation. Patient placed in ulnar gutter splint. Patient will follow up with orthopedic consult tomorrow. Patient to return to ER if condition worsens in any way. Return precautions discussed. Patient was understanding. Case discussed [facility] Dr. Vega. Disposition Clinical Impression: Fracture of fifth metacarpal bone Disposition: HOME SELF-CARE Condition: Stable Instructions (If sedation given, give patient instructions): Hand Fracture (ED) Additional Instructions: Patient to adhere to previously discussed treatment plan and will take medication(s) as directed. Patient to follow up with PCP in 1-2 days. Patient to return to ED if symptoms do not improve. Please follow-up with orthopedic consult tomorrow. Please use Tylenol or Motrin as needed for pain. Is patient prescribed a controlled substance at d/c from ED?: No Referrals: Rain Dsouza MD [Primary Care Provider] - 1-2 days Akshat Irwin DO [Doctor of Osteopathic Medicine] - 1-2 days
== END 2018-10-05 18:55 | disposition home or self-care (01) ==
LOC: EC 17:23
DX: S62.307A Unspecified fracture of fifth metacarpal bone, left hand, initial encounter for closed fracture (principal); F17.200 Nicotine dependence, unspecified, uncomplicated; Z98.890 Other specified postprocedural states; W22.01XA Walked into wall, initial encounter
CPT/HCPCS: 29125; 99284

== ENCOUNTER 2024-04-28 09:54 | Emergency (ER) | payer OTHER ==
[2024-04-28 09:57] VITALS: RESP 18; TEMP 98.4
[2024-04-28] MEDS: KETOROLAC 15 MG/ML 1 ML VIAL IVP STA ×2 (10:30→12:33)
--- NOTE | 2024-04-28 10:30 | ED ---
Back Pain HPI - General Chief Complaint: Back Pain/Injury Stated Complaint: lower back pain/vomitting Time Seen by Provider: 04/28/24 09:57 Source: patient, RN notes reviewed Mode of arrival: ambulatory Limitations: no limitations - History of Present Illness Initial Comments: This is a 38-year-old male who presents to the emergency department for flank pain and vomiting. States that a couple of days ago he developed sudden onset sharp pain in his left lower quadrant and left mid back. The pain then continued to hit him in waves and has now localized to the left flank. The pain does not seem to correlate with movement. Reports associated nausea and vomiting. His urine appears somewhat darker than normal. Denies any burning with urination. Denies any injuries. He has a history of kidney stones 18 years ago but does not recall what it felt like. MD Complaint: back pain - Related Data Home Medications Medication Instructions Recorded Confirmed diphenhydrAMINE [Benadryl] 25 mg PO DAILY PRN 06/22/18 06/26/18 Previous Rx's Medication Instructions Recorded Aspirin EC [Ecotrin Low Dose] 81 mg PO DAILY #40 tablet. 06/26/18 Flecainide [Tambocor] 50 mg PO Q12HR #180 tablet 06/26/18 Verapamil [Isoptin] 40 mg PO BID #180 tablet 06/26/18 HYDROcodone/APAP 5-325MG [Mize 1 tab PO Q6HR PRN 3 Days #12 tab 04/28/24 5-325] Ketorolac [Toradol] 10 mg PO Q6HR PRN #15 tab 04/28/24 Ondansetron Odt [Zofran Odt] 4 mg PO Q8HR PRN #15 tab 04/28/24 Tamsulosin [Flomax] 0.4 mg PO DAILY 7 Days #7 cap 04/28/24 Allergies Allergy/AdvReac Type Severity Reaction Status Date / Time No Known Allergies Allergy Verified 10/05/18 17:28 Review of Systems ROS Statement: Those systems with pertinent positive or pertinent negative responses have been documented in the HPI. ROS Other: All systems not noted in ROS Statement are negative. 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 Absent: respiratory distress, wheezes, rales, rhonchi, stridor Cardiovascular Exam: Present: regular rate, normal rhythm, normal heart sounds. Absent: systolic murmur, diastolic murmur, rubs, gallop, clicks GI/Abdominal exam: Present: soft, normal bowel sounds. Absent: distended, tenderness, guarding, rebound, rigid Back exam: Present: CVA tenderness (L). Absent: CVA tenderness (R) Neurological exam: Present: alert, oriented X3, CN II-XII intact Psychiatric exam: Present: normal affect, normal mood Skin exam: Present: warm, dry, intact, normal color. Absent: rash Course Vital Signs 04/28/24 04/28/24 09:55 12:51 Temperature 98.4 F Pulse Rate 76 65 Respiratory 18 18 Rate Blood Pressure 154/95 124/79 O2 Sat by Pulse 98 98 Oximetry Medical Decision Making - Medical Decision Making This is a 38 year old male who presents to the emergency department for left flank pain. Was pt. sent in by a medical professional or institution? @ -No Did you speak to anyone other than the patient for history? @ -No Did you review nursing and triage notes? @ -Yes, and I agree, it is accurate with regards to the patient's symptoms. Were old charts reviewed? @ -No Differential Diagnosis? @ -Differential Flank Pain: UTI, pyelonephritis, kidney stone, musculoskeletal, pancreatitis, cholecystitis, this is not meant to be an all-inclusive list. EKG interpreted by me (3pts min.)? @ -Not obtained X-rays interpreted by me (1pt min.)? @ -Not obtained CT interpreted by me (1pt min.)? @ -Not obtained U/S interpreted by me (1pt. min.)? @ -CT scan of the abdomen and pelvis obtained. My interpretation identifies a left ureteral calculus. What testing was considered but not performed? (CT, X-rays, U/S, labs)? Why? @ -None What meds were considered but not given? Why? @ -None Did you discuss the management of the patient with other professionals? @ -No Did you reconcile home meds? @ -No Was smoking cessation discussed for >3mins.? @ -I discussed smoking cessation for greater than 3 minutes. The risk of smoking were discussed with the patient including but not limited to risks of cancer, stroke, coronary artery disease and COPD. Also discussed with patient were multiple methods of quitting smoking. Lastly we discussed the financial cost of smoking. Was critical care preformed (if so, how long)? @ -No Were there social determinants of health that impacted care today? How? (Homelessness, low income, unemployed, alcoholism, drug addiction, transportation, low edu. Level, literacy, decrease access to med. care, shelter, rehab)? @ -No Was there de-escalation of care discussed even if they declined? (Discuss DNR or withdrawal of care, Hospice)? @ -No What co-morbidities impacted this encounter? (DM, HTN, Smoking, COPD, CAD, Cancer, CVA, Hep., AIDS, mental health diagnosis, sleep apnea, morbid obesity)? @ -Smoking Was patient admitted / discharged? @ -Discharged. Lab work demonstrates leukocytosis and is otherwise unremarkable. Urinalysis contains blood but is negative for signs of infection. CT scan of the abdomen and pelvis demonstrates a 0.4 cm obstructing left ureteral stone in the mid ureter with mild to moderate hydronephrosis. Findings reviewed with the patient. Symptoms managed in the emergency department. Toradol, Mize, Flomax, and Zofran prescribed for symptomatic management. Information for urology follow-up provided as well and he is instructed to contact them Tuesday morning for a follow-up appointment. Strict return parameters discussed. Patient discharged home in stable condition. Case discussed with ED attending Dr. Oscar. Return precautions reviewed in depth, the patient is instructed to return to the emergency department with any new, worsening, or concerning symptoms. Patient verbalized understanding. Undiagnosed new problem with uncertain prognosis? @ -None Drug Therapy requiring intensive monitoring for toxicity (Heparin, Nitro, Insulin, Cardizem)? @ -None Were any procedures done? @ -None Diagnosis/symptom? @ -Left ureteral calculus Acute, or Chronic, or Acute on Chronic? @ -Acute Uncomplicated (without systemic symptoms) or Complicated (systemic symptoms)? @ -Uncomplicated Side effects of treatment? @ -None Exacerbation, Progression, or Severe Exacerbation] @ -Not applicable Poses a threat to life or bodily function? @ -No - Lab Data Result diagrams: 04/28/24 10:33 04/28/24 10:33 Lab Results 04/28/24 04/28/24 04/28/24 Range/Units 10:33 10:33 10:33 WBC 20.4 H (3.8-10.6) k/uL RBC 4.90 (4.30-5.90) m/uL Hgb 14.9 (13.0-17.5) gm/dL Hct 44.2 (39.0-53.0) % MCV 90.3 (80.0-100.0) fL MCH 30.3 (25.0-35.0) pg MCHC 33.6 (31.0-37.0) g/dL RDW 12.5 (11.5-15.5) % Plt Count 251 (150-450) k/uL MPV 7.0 Neutrophils % 90 % Lymphocytes % 5 % Monocytes % 3 % Eosinophils % 1 % Basophils % 0 % Neutrophils # 18.4 H (1.3-7.7) k/uL Lymphocytes # 1.0 (1.0-4.8) k/uL Monocytes # 0.6 (0-1.0) k/uL Eosinophils # 0.2 (0-0.7) k/uL Basophils # 0.0 (0-0.2) k/uL Sodium 138 (137-145) mmol/L Potassium 4.4 (3.5-5.1) mmol/L Chloride 107 (98-107) mmol/L Carbon Dioxide 25 (22-30) mmol/L Anion Gap 6 mmol/L BUN 18 (9-20) mg/dL Creatinine 1.16 (0.66-1.25) mg/dL Est GFR (CKD-EPI)AfAm >90 (>60 ml/min/1.73 sqM) Est GFR (CKD-EPI)NonAf 79 (>60 ml/min/1.73 sqM) Glucose 109 H (74-99) mg/dL Plasma Lactic Acid Satnam 0.9 (0.7-2.0) mmol/L Calcium 9.6 (8.4-10.2) mg/dL Total Bilirubin 0.7 (0.2-1.3) mg/dL AST 26 (17-59) U/L ALT 17 (4-49) U/L Alkaline Phosphatase 71 (38-126) U/L Total Protein 6.4 (6.3-8.2) g/dL Albumin 4.1 (3.5-5.0) g/dL Lipase 72 (23-300) U/L Urine Color Urine Appearance (Clear) Urine pH (5.0-8.0) Ur Specific [place] (1.001-1.035) Urine Protein (Negative) Urine Glucose (UA) (Negative) Urine Ketones (Negative) Urine Blood (Negative) Urine Nitrite (Negative) Urine Bilirubin (Negative) Urine Urobilinogen (<2.0) mg/dL Ur Leukocyte Esterase (Negative) Urine RBC (0-5) /hpf Urine WBC (0-5) /hpf Ur Squamous Epith Cells (0-4) /hpf Calcium Oxalate Crystal (None) /hpf Hyaline Casts (0-2) /lpf Urine Mucus (None) /hpf 04/28/24 Range/Units 11:40 WBC (3.8-10.6) k/uL RBC (4.30-5.90) m/uL Hgb (13.0-17.5) gm/dL Hct (39.0-53.0) % MCV (80.0-100.0) fL MCH (25.0-35.0) pg MCHC (31.0-37.0) g/dL RDW (11.5-15.5) % Plt Count (150-450) k/uL MPV Neutrophils % % Lymphocytes % % Monocytes % % Eosinophils % % Basophils % % Neutrophils # (1.3-7.7) k/uL Lymphocytes # (1.0-4.8) k/uL Monocytes # (0-1.0) k/uL Eosinophils # (0-0.7) k/uL Basophils # (0-0.2) k/uL Sodium (137-145) mmol/L Potassium (3.5-5.1) mmol/L Chloride (98-107) mmol/L Carbon Dioxide (22-30) mmol/L Anion Gap mmol/L BUN (9-20) mg/dL Creatinine (0.66-1.25) mg/dL Est GFR (CKD-EPI)AfAm (>60 ml/min/1.73 sqM) Est GFR (CKD-EPI)NonAf (>60 ml/min/1.73 sqM) Glucose (74-99) mg/dL Plasma Lactic Acid Satnam (0.7-2.0) mmol/L Calcium (8.4-10.2) mg/dL Total Bilirubin (0.2-1.3) mg/dL AST (17-59) U/L ALT (4-49) U/L Alkaline Phosphatase (38-126) U/L Total Protein (6.3-8.2) g/dL Albumin (3.5-5.0) g/dL Lipase (23-300) U/L Urine Color Yellow Urine Appearance Clear (Clear) Urine pH 6.0 (5.0-8.0) Ur Specific [place] 1.036 H (1.001-1.035) Urine Protein 1+ H (Negative) Urine Glucose (UA) Negative (Negative) Urine Ketones 3+ H (Negative) Urine Blood Small H (Negative) Urine Nitrite Negative (Negative) Urine Bilirubin Negative (Negative) Urine Urobilinogen 2.0 (<2.0) mg/dL Ur Leukocyte Esterase Negative (Negative) Urine RBC 17 H (0-5) /hpf Urine WBC 6 H (0-5) /hpf Ur Squamous Epith Cells <1 (0-4) /hpf Calcium Oxalate Crystal Rare H (None) /hpf Hyaline Casts 1 (0-2) /lpf Urine Mucus Moderate H (None) /hpf - Radiology Data Radiology results: report reviewed, image reviewed Disposition Clinical Impression: Left ureteral calculus, Nicotine dependence Disposition: HOME SELF-CARE Instructions (If sedation given, give patient instructions): Renal Colic (ED), Ureteral Stones (ED) Additional Instructions: Return to the emergency department with any new, worsening, or concerning symptoms. Take the Toradol with Tylenol as needed for pain relief. If you choose to take the Toradol, do not take any other anti-inflammatories such as ibuprofen, take one or the other. Take the Zofran up to every 8 hours as needed for nausea and vomiting. Take the Flomax daily for 7 days or until the pain resolves. Take the Mize sparingly when your pain is the most severe. Contact urology listed below for a follow-up appointment. Let them know that you were seen in the emergency department for a stone in your left ureter. Prescriptions: Tamsulosin [Flomax] 0.4 mg PO DAILY 7 Days #7 cap HYDROcodone/APAP 5-325MG [Mize 5-325] 1 tab PO Q6HR PRN 3 Days #12 tab PRN Reason: Pain Ketorolac [Toradol] 10 mg PO Q6HR PRN #15 tab PRN Reason: Pain Ondansetron Odt [Zofran Odt] 4 mg PO Q8HR PRN #15 tab PRN Reason: Nausea And Vomiting Is patient prescribed a controlled substance at d/c from ED?: Yes When asked, does pt state using other controlled substances?: No If prescribed controlled substance>3 days was MAPS reviewed?: Prescribed <3 Days Referrals: None,Stated [Primary Care Provider] - 1-2 days Sam Ramsay MD [STAFF PHYSICIAN] - 1-2 days Time of Disposition: 12:32
[2024-04-28] MEDS: SODIUM CHLORIDE 0.9% 1,000 ML IV STA (10:32)
[2024-04-28] MEDS: MORPHINE SULFATE 4 MG/ML SYRINGE IVP STA (10:36)
[2024-04-28] MEDS: ONDANSETRON 4 MG/2 ML VIAL IVP STA (10:36)
[2024-04-28 10:41] LABS: Basophils % (A) 0 %; Eosinophils # (A) 0.2 k/uL (0-0.7); Eosinophils % (A) 1 %; HCT 44.2 % (39.0-53.0); HGB 14.9 gm/dL (13.0-17.5); Lymphocytes % (A) 5 %; MCH 30.3 pg (25.0-35.0); MCHC 33.6 g/dL (31.0-37.0); MCV 90.3 fL (80.0-100.0); Monocytes # (A) 0.6 k/uL (0-1.0); Monocytes % (A) 3 %; Neutrophils # (A) 18.4 k/uL (1.3-7.7); Neutrophils % (A) 90 %; Platelet Count 251 k/uL (150-450); RDW 12.5 % (11.5-15.5); WBC 20.4 k/uL (3.8-10.6)
[2024-04-28 10:48] LABS: ALT 17 U/L (4-49); AST 26 U/L (17-59); African American GFR (CKD) >90 (>60 ml/min/1.73 sqM); Albumin 4.1 g/dL (3.5-5.0); Alkaline Phosphatase 71 U/L (38-126); Anion Gap 6 mmol/L; Blood Urea Nitrogen 18 mg/dL (9-20); Calcium 9.6 mg/dL (8.4-10.2); Carbon Dioxide 25 mmol/L (22-30); Chloride 107 mmol/L (98-107); Glucose 109 mg/dL (74-99); Lipase 72 U/L (23-300); Non-African American GFR(CKD) 79 (>60 ml/min/1.73 sqM); Potassium 4.4 mmol/L (3.5-5.1); Sodium 138 mmol/L (137-145); Total Bilirubin 0.7 mg/dL (0.2-1.3); Total Protein 6.4 g/dL (6.3-8.2)
--- NOTE | 2024-04-28 11:28 | CT ---
EXAMINATION TYPE: CT abdomen pelvis wo con DATE OF EXAM: 04/28/2024 11:03 AM COMPARISON: None. CLINICAL INDICATION: Male, 38 years old with history of Left flank pain, Left flank pain x5 days no h emturia TECHNIQUE: Axial images were obtained from above the diaphragm to the pubic rami in the axial plane a t 5 mm thick sections. Reconstructed images are reviewed on the computer in the coronal plane. CONTRAST: mL of . Study performed without Oral Contrast DLP: 333.3 mGycm, Automated exposure control for dose reduction was used. FINDINGS: Limited CT sections are obtained the lung bases. The lung bases are clear. CT ABDOMEN: Liver: Normal Spleen: Normal Pancreas: Normal Adrenal glands: The adrenal glands are normal. Gallbladder: Normal Kidneys: No masses are evident. There is a moderate left hydronephrosis. Punctate nonobstructing mid left renal stone is present. There appears to be a 0.4 cm obstructing mid left ureteral stone near th e pelvic inlet. No distal ureteral stones identified. Aorta: Vascular calcification is within the aorta. Inferior vena cava: Normal. CT PELVIS: Fat-containing left inguinal hernia appears to be present. Loops of bowel within the abdomen and pelvis are normal. There are loops of bowel which are incom pletely distended or lack oral contrast limiting their evaluation. Appendix: Normal as visualized. Urinary bladder: Normal. Genitourinary structures: Prostate is unremarkable Osseous structures: No suspicious lytic or sclerotic lesions. IMPRESSION: 1. A 0.4 cm obstructing left ureteral stones mid ureter mild to moderate left hydronephrosis. 2. Nonobstructing punctate left renal stone. 3. Small fat-containing left inguinal hernia present [facility], , 04/28/2024 11:25 AM
[2024-04-28 11:58] LABS: Appearance,Urine Clear (Clear); Bilirubin,Urine Negative (Negative); Blood,Urine Small (Negative); Calcium Oxalate Crystals,Urine Rare /hpf; Color,Urine Yellow; Glucose,Urine (UA) Negative (Negative); Hyaline Casts,Urine 1 /lpf (0-2); Ketones,Urine 3+ (Negative); Leukocyte Esterase,Urine Negative (Negative); Mucus,Urine Moderate /hpf; Nitrite,Urine Negative (Negative); Protein,Urine 1+ (Negative); RBC,Urine 17 /hpf (0-5); Specific Gravity,Urine 1.036 (1.001-1.035); Squamous Epithelial Cell,Urine <1 /hpf (0-4); WBC,Urine 6 /hpf (0-5)
[2024-04-28] MEDS: HYDROmorphone 1 MG/ML 1 ML SYRINGE IVP STA (12:33)
[2024-04-28 12:53] VITALS: BP 124/79; PULSE 65
== END 2024-04-28 12:52 | disposition home or self-care (01) ==
LOC: EC 09:54
DX: N13.2 Hydronephrosis with renal and ureteral calculous obstruction (principal); F17.200 Nicotine dependence, unspecified, uncomplicated
CPT/HCPCS: 36415; 80053; 83605; 83690; 85025; 81001; 74176; 99284; 99406; 96374; 96375 ×3; 96376; 96361; J2270; J2405; J1171; J1885